=== PATIENT | male | born 1980 | race African-American/Black ===

== ENCOUNTER 2017-01-02 09:19 | Emergency (ER) | payer MEDICAID ==
[~2017-01-02 09:19] MED LIST: AMLODIPINE BESYL5 MG PO; ASPIRIN EC81 MG PO; CYCLOBENZAPRINE10 M1 PO; FLEXERIL10 MG PO; HYDROCHLOROTHIA25 M1 PO; LISINOPRIL-HCTZ PO; LISINOPRIL10 M1 PO; LISINOPRIL20 M1 PO; NORCO 5/3251 TAB PO; PROTONIX20 M2 PO; ZOCOR10 M1 PO; ZOFRAN4 MG PO
[2017-01-02] MEDS ORDERED: TRAMADOL HCL50 M2 PO (09:39)
[2017-01-02] MEDS ORDERED: KEPPRA1000 M1 PO (09:40)
[2017-01-02 10:51] LABS: BASO % 0.2 % (0-2); EOS % 3.4 % (0-7); EOSINOPHIL ABSOLUTE COUNT 0.2 tho/cmm (0.0-0.7); HGB-HEMOGLOBIN 14.4 gm/dl (13.5-17.0); LYMPH % 37.6 % (20-45); LYMPH ABSOLUTE COUNT 1.6 tho/cmm (0.8-4.5); MCH (MEAN CORPUSCULAR HGB) 32.6 pg (28.0-32.0); MCHC MEAN CORPUSCULAR HGB CONC 34.3 % (32.0-36.0); MONO % 16.3 % (0-12); MONOCYTE ABSOLUTE COUNT 0.7 tho/cmm (0.0-1.2); NEUTROPHIL ABSOLUTE COUNT 1.9 tho/cmm (1.6-8.0); NEUTROPHIL-AUTOMATED 1.9 tho/cmm (1.6-8.0); NEUTROPHILS % 42.5 % (40-80); PLATELET COUNT 225 tho/cmm (150-450); RED BLOOD COUNT 4.42 mil/cmm (4.40-5.70); RED CELL DISTRIBUTION WIDTH 13.6 % (12.4-16.4); WHITE BLOOD COUNT 4.4 tho/cmm (4.0-10.0)
[2017-01-02] MEDS ORDERED: CYMBALTA60 M1 PO (11:12)
[2017-01-02] MEDS ORDERED: ASPIRIN EC81 MG PO (11:12)
[2017-01-02 11:40] LABS: ALBUMIN 3.9 g/dl (3.5-5.0); ANION GAP 14 mmol/L (0-20); BLOOD UREA NITROGEN 18 mg/dl (6-24); CALCIUM 8.9 mg/dl (8.5-10.5); CARBON DIOXIDE-VENOUS 26 mmol/L (22-32); CHLORIDE 104 mmol/l (96-110); GLUCOSE 92 mg/dL (70-110); LIPASE 145 U/L (73-393); POTASSIUM 4.1 mmol/L (3.7-5.1); SODIUM 140 mmol/L (135-145)
[2017-01-02 11:43] LABS: eGFR VALUE FOR BLACK >90 mL/Min
[2017-01-02 11:44] LABS: ALKALINE PHOSPHATASE 49 U/L (33-138); ALT/SGPT 58 U/L (12-78); AST/SGOT 32 U/L (10-40); BILIRUBIN,TOTAL 0.3 mg/dl (0.0-1.5); C-REACTIVE PROTEIN 0.7 mg/dl (0-0.9)
[2017-01-02] MEDS ORDERED: ANUSOL-HC25 MG PR (12:57)
[2017-05-13] MEDS ORDERED: NORCO 5/3251 TAB PO (23:32)
[2017-05-13] MEDS ORDERED: ZOFRAN4 M2 PO (23:32)
[2017-05-19] MEDS ORDERED: NORVASC10 M2 PO (14:55)
[2017-05-19] MEDS ORDERED: PREDNISONE10 M1 PO (14:57)
== END 2017-01-02 13:05 ==
LOC: EDMED 09:19
PROVIDERS: Emergency Medicine
DX: K64.8 Other hemorrhoids (principal); R19.7 Diarrhea, unspecified; I10 Essential (primary) hypertension; Z86.73 Personal history of transient ischemic attack (TIA), and cerebral infarction without residual deficits; F17.200 Nicotine dependence, unspecified, uncomplicated; Z79.82 Long term (current) use of aspirin; Z79.899 Other long term (current) drug therapy
CPT/HCPCS: J2270; J2405; J7030; Q9967

== ENCOUNTER 2017-01-15 10:35 | Emergency (ER) | payer MEDICAID ==
[~2017-01-15 10:35] MED LIST changes: +ANUSOL-HC25 MG PR; +CYMBALTA60 M1 PO; +KEPPRA1000 M1 PO; +TRAMADOL HCL50 M2 PO
[2017-01-15 11:38] LABS: BASO % 0.2 % (0-2); EOS % 0.5 % (0-7); HCT-HEMATOCRIT 47.2 % (36.0-53.5); HGB-HEMOGLOBIN 16.5 gm/dl (13.5-17.0); IMMATURE GRANULOCYTES ABSOLUTE 0.01 tho/cmm (0-0.03); IMMATURE GRANULOCYTES PERCENT 0.2 % (0-0.3); LYMPH % 27.4 % (20-45); LYMPH ABSOLUTE COUNT 1.6 tho/cmm (0.8-4.5); MCV (MEAN CELL VOLUME) 91.7 fl (82.0-96.0); MEAN PLATELET VOLUME 9.8 cmc (9.4-12.4); MONO % 14.4 % (0-12); MONOCYTE ABSOLUTE COUNT 0.8 tho/cmm (0.0-1.2); NEUTROPHIL ABSOLUTE COUNT 3.3 tho/cmm (1.6-8.0); NEUTROPHIL-AUTOMATED 3.3 tho/cmm (1.6-8.0); NEUTROPHILS % 57.3 % (40-80); PLATELET COUNT 290 tho/cmm (150-450); RED BLOOD COUNT 5.15 mil/cmm (4.40-5.70); RED CELL DISTRIBUTION WIDTH 13.4 % (12.4-16.4); WHITE BLOOD COUNT 5.7 tho/cmm (4.0-10.0)
[2017-01-15 11:52] LABS: ALB/GLOB RATIO 0.9 (0.8-2.0); ALBUMIN 4.5 g/dl (3.5-5.0); ALKALINE PHOSPHATASE 75 U/L (33-138); ALT/SGPT 55 U/L (12-78); BILIRUBIN,TOTAL 0.5 mg/dl (0.0-1.5); BLOOD UREA NITROGEN 15 mg/dl (6-24); CALCIUM 9.5 mg/dl (8.5-10.5); CARBON DIOXIDE-VENOUS 24 mmol/L (22-32); CHLORIDE 99 mmol/l (96-110); CREATININE 1.27 mg/dl (0.60-1.30); GLUCOSE 124 mg/dL (70-110); SODIUM 133 mmol/L (135-145); eGFR VALUE FOR BLACK 84 mL/Min
[2017-01-15 11:53] LABS: ANION GAP 14 mmol/L (0-20); AST/SGOT 40 U/L (10-40); POTASSIUM 4.2 mmol/L (3.7-5.1)
[2017-05-13] MEDS ORDERED: NORCO 5/3251 TAB PO (23:32)
[2017-05-13] MEDS ORDERED: ZOFRAN4 M2 PO (23:32)
[2017-05-19] MEDS ORDERED: NORVASC10 M2 PO (14:55)
[2017-05-19] MEDS ORDERED: PREDNISONE10 M1 PO (14:57)
== END 2017-01-15 15:53 ==
LOC: EDMED 10:35
PROVIDERS: Physician Assistant
DX: K62.5 Hemorrhage of anus and rectum (principal); I10 Essential (primary) hypertension; F17.210 Nicotine dependence, cigarettes, uncomplicated
CPT/HCPCS: J2270; J2405; J7030